=== PATIENT | male | born 1980 | race African-American/Black ===

== ENCOUNTER 2018-07-29 11:45 | Emergency (ER) | payer BC ==
[~2018-07-29] VITALS: Ht 165.1 cm; Wt 86.2 kg
[2018-07-29 12:06] VITALS: BP 140/90
--- NOTE | 2018-07-29 12:22 | PHYS DOC ---
Past Medical History Past Medical History: No Pertinent History Past Surgical History: No Surgical History Alcohol Use: None Drug Use: None Adult General Chief Complaint Chief Complaint: TOE PROBLEM HPI HPI Patient is a 38 year old male who presents with right great toe injury. Patient was wearing flip-flops when he was walking through a store parking lot. He suffered a double type injury to the right toe. He complains of right toe pain and some distraction of the right rate toenail. He did not sustain additional injury. He is uncertain when his last tetanus shot was. Review of Systems Review of Systems Constitutional: Denies fever HENT: Denies nasal congestion Respiratory: Denies cough or shortness of breath Cardiovascular: No additional information not addressed in HPI GI: Denies abdominal pain Musculoskeletal: Denies back pain Integument: Denies rash Neurologic: Denies headache All other systems were reviewed and found to be within normal limits, except as documented in this note. Current Medications Current Medications Current Medications Medications (Trade) Dose Ordered Sig/Ami Start Time Stop Time Status Last Admin Dose Admin Diphtheria/ Tetanus/Acell Pertussis (Boostrix) 0.5 ml ONCE ONCE 07/29/18 12:30 07/29/18 12:31 DC 07/29/18 12:38 0.5 ML Ibuprofen (Motrin) 800 mg 1X ONCE 07/29/18 12:30 07/29/18 12:31 DC 07/29/18 12:18 800 MG Allergies Allergies Allergies Coded Allergies Type Severity Reaction Last Updated Verified No Known Drug Allergies 07/29/18 No Physical Exam Physical Exam Constitutional: Well developed, well nourished, no acute distress HENT: Normocephalic, atraumatic, bilateral external ears normal Eyes: PERRLA, EOMI Neck: Normal range of motion Skin: Warm, dry, no erythema, no rash Extremities: minor abrasion to the right great toe and very small portion of the toenail is torn, capillary refill is < 2 seconds Neurologic: Alert and oriented X 3 Psychologic: Affect normal Current Patient Data Vital Signs Vital Signs Date Time Temp Pulse Resp B/P (MAP) Pulse Ox O2 Delivery O2 Flow Rate FiO2 07/29/18 12:06 97.7 70 18 140/90 (107) 97 Room Air 97.7 EKG EKG [] Radiology/Procedures Radiology/Procedures XR right great toe: negative for acute bony abnormality Course & Med Decision Making Course & Med Decision Making Pertinent Labs and Imaging studies reviewed. (See chart for details) Patient was evaluated in the emergency department for a toe injury. No acute findings were present on x-ray. He was discharged home with ibuprofen as needed for pain. Follow-up with primary care doctor or come back to the ER as needed. He was offered a postop shoe for comfort but declined prior to discharge. Dragon Disclaimer Dragon Disclaimer This electronic medical record was generated, in whole or in part, using a voice recognition dictation system. Departure Departure Disposition: 01 HOME, SELF-CARE Condition: GOOD Scripts Ibuprofen (IBUPROFEN) 800 Mg Tablet 800 MG PO PRN TID PRN for PAIN, #20 TAB take with food or milk to avoid upsetting stomach Prov: SKY HILLMAN DO 07/29/18 SKY HILLMAN DO Jul 29, 2018 12:21
[2018-07-29] MEDS ORDERED: DIPHTH,PERTUSS(ACELL),TET TOX 0.5 ML DISP.SYRIN. VAX IM ONE (12:30)
[2018-07-29] MEDS ORDERED: IBUPROFEN 400 MG TABLET. PO ONE (12:30)
--- NOTE | 2018-07-29 12:36 | RAD ---
Right great toe, 3 views, 07/29/2018: HISTORY: Injury No fracture or dislocation is identified. IMPRESSION: No significant bony abnormality is detected. Electronically signed by: Toribio Shankar MD (07/29/2018 12:31 PM) [facility]
[2018-07-29] MEDS ORDERED: IBUP-1060 PO (12:37)
== END 2018-07-29 12:41 | disposition home or self-care (01) ==
LOC: ER 11:45
DX: S90.411A Abrasion, right great toe, initial encounter (principal); X58.XXXA Exposure to other specified factors, initial encounter; Y93.01 Activity, walking, marching and hiking; Y92.481 Parking lot as the place of occurrence of the external cause; Y99.8 Other external cause status
CPT/HCPCS: 73660; 90471; 90715; 99283

== ENCOUNTER 2018-09-02 01:44 | Emergency (ER) | payer BC ==
[~2018-09-02] VITALS: Ht 165.1 cm; Wt 84.8 kg
[~2018-09-02 01:44] MED LIST: IBUP-1060 PO
[2018-09-02 02:00] VITALS: BP 152/93
[2018-09-02] MEDS ORDERED: DEXAMETHASONE 4 MG TABLET PO ONE (02:30)
[2018-09-02] MEDS ORDERED: PRED20TA PO (02:48)
[2018-09-02] MEDS ORDERED: ALBU2.5V8 INH (02:48)
--- NOTE | 2018-09-02 02:48 | PHYS DOC ---
Past Medical History Past Medical History: No Pertinent History Past Surgical History: No Surgical History Alcohol Use: Occasionally Drug Use: None Adult General Chief Complaint Chief Complaint: FLU SYMPTOM HPI HPI Patient is a 38 year old [f__sex] who presents with [] Review of Systems Review of Systems Constitutional: Denies fever or chills [] Eyes: Denies change in visual acuity, redness, or eye pain [] HENT: Denies nasal congestion or sore throat [] Respiratory: Denies cough or shortness of breath [] Cardiovascular: No additional information not addressed in HPI [] GI: Denies abdominal pain, nausea, vomiting, bloody stools or diarrhea [] : Denies dysuria or hematuria [] Musculoskeletal: Denies back pain or joint pain [] Integument: Denies rash or skin lesions [] Neurologic: Denies headache, focal weakness or sensory changes [] Endocrine: Denies polyuria or polydipsia [] All other systems were reviewed and found to be within normal limits, except as documented in this note. Current Medications Current Medications Current Medications Medications (Trade) Dose Ordered Sig/Ami Start Time Stop Time Status Last Admin Dose Admin Dexamethasone (Decadron) 10 mg 1X ONCE 09/02/18 02:30 09/02/18 02:31 DC 09/02/18 02:25 10 MG Allergies Allergies Allergies Coded Allergies Type Severity Reaction Last Updated Verified No Known Drug Allergies 07/29/18 No Physical Exam Physical Exam Constitutional: Well developed, well nourished, no acute distress, non-toxic appearance. [] HENT: Normocephalic, atraumatic, bilateral external ears normal, oropharynx moist, no oral exudates, nose normal. [] Eyes: PERRLA, EOMI, conjunctiva normal, no discharge. [] Neck: Normal range of motion, no tenderness, supple, no stridor. [] Cardiovascular:Heart rate regular rhythm, no murmur [] Lungs & Thorax: Bilateral breath sounds clear to auscultation [] Abdomen: Bowel sounds normal, soft, no tenderness, no masses, no pulsatile masses. [] Skin: Warm, dry, no erythema, no rash. [] Back: No tenderness, no CVA tenderness. [] Extremities: No tenderness, no cyanosis, no clubbing, ROM intact, no edema. [] Neurologic: Alert and oriented X 3, normal motor function, normal sensory function, no focal deficits noted. [] Psychologic: Affect normal, judgement normal, mood normal. [] Current Patient Data Vital Signs Vital Signs Date Time Temp Pulse Resp B/P (MAP) Pulse Ox O2 Delivery O2 Flow Rate FiO2 09/02/18 02:00 98.5 90 16 152/93 (112) 96 Room Air 98.5 EKG EKG [] Radiology/Procedures Radiology/Procedures [] Course & Med Decision Making Course & Med Decision Making Pertinent Labs and Imaging studies reviewed. (See chart for details) [] Dragon Disclaimer Dragon Disclaimer This electronic medical record was generated, in whole or in part, using a voice recognition dictation system. Departure Departure Impression: Primary Impression: Flu-like symptoms Disposition: HOME, SELF-CARE Condition: STABLE Referrals: NO PCP (PCP) Patient Instructions: Upper Respiratory Infection, Adult, [id number], Viral Syndrome Scripts Guaifenesin/Codeine Phosphate (Coditussin AC Liquid) 473 Ml Liquid 10 ML PO TID PRN PRN for COUGH, #100 LIQUID Prov: YOON MONTENEGRO DO 09/02/18 Prednisone (PREDNISONE) 20 Mg Tablet 2 TAB PO DAILY, #8 TAB Start tomorrow Saturday09/03/18 Prov: YOON MONTENEGRO DO 09/02/18 Albuterol Sulfate (PROAIR HFA INHALER) 8.5 Gm Hfa.aer.ad 1 PUFF INH PRN Q6HRS PRN for SHORTNESS OF BREATH, #1 INHALER 0 Refills Prov: YOON MONTENEGRO DO 09/02/18 YOON MONTENEGRO DO Sep 02, 2018 02:48
[2018-09-02] MEDS ORDERED: GUAI473L75 PO (03:00)
--- NOTE | 2018-09-02 08:04 | RAD ---
Examination: CHEST PA LATERAL History: cough Comparison/Correlation: None Findings: PA and lateral views of chest were obtained. Heart size and pulmonary vasculature are normal. No infiltrate or pneumothorax. Bony structures are intact. No pleural effusion. Impression: No active disease. Electronically signed by: Pradip Rodriguez MD (09/02/2018 7:59 AM) [facility]
== END 2018-09-02 03:07 | disposition home or self-care (01) ==
LOC: ER 01:44
DX: R05 Cough (principal); R09.81 Nasal congestion; M79.18 Myalgia, other site
CPT/HCPCS: 71046; 99283; J8540

== ENCOUNTER 2018-09-21 05:55 | Emergency (ER) | payer BC ==
[~2018-09-21] VITALS: Ht 167.6 cm; Wt 86.2 kg
[~2018-09-21 05:55] MED LIST changes: +ALBU2.5V8 INH; +GUAI473L75 PO; +PRED20TA PO
--- NOTE | 2018-09-21 06:13 | PHYS DOC ---
Past Medical History Past Medical History: No Pertinent History Past Surgical History: No Surgical History Alcohol Use: None Drug Use: None Adult General Chief Complaint Chief Complaint: FLANK PAIN HPI HPI Patient is a 38 year old male presented to ER today for evaluation of right- sided abdominal pain started last night. Patient said the pain continued throughout the night, woke him up from sleep. Patient said the pain radiated to his right groin area, into his low back. Patient denies any fever. He denies any previous kidney stone history, no frequent urination, no blood in his urine. Patient still has an appendix. He denies anything that makes the pain worse or better. Patient denies any fever. Review of Systems Review of Systems Constitutional: Denies fever or chills [] Eyes: Denies change in visual acuity, redness, or eye pain [] HENT: Denies nasal congestion or sore throat [] Respiratory: Denies cough or shortness of breath [] Cardiovascular: No additional information not addressed in HPI [] GI: Positive abdominal pain, NO nausea, vomiting, bloody stools or diarrhea [] : Denies dysuria or hematuria [] Musculoskeletal: Denies back pain or joint pain [] Integument: Denies rash or skin lesions [] Neurologic: Denies headache, focal weakness or sensory changes [] Endocrine: Denies polyuria or polydipsia [] All other systems were reviewed and found to be within normal limits, except as documented in this note. Current Medications Current Medications Current Medications Medications (Trade) Dose Ordered Sig/Ami Start Time Stop Time Status Last Admin Dose Admin Ketorolac Tromethamine (Toradol 30mg Vial) 30 mg 1X ONCE 09/21/18 06:15 09/21/18 06:16 DC 09/21/18 06:20 30 MG Morphine Sulfate (Morphine Sulfate) 4 mg 1X ONCE 09/21/18 08:15 09/21/18 08:16 DC 09/21/18 08:20 4 MG Ondansetron HCl (Zofran) 4 mg 1X ONCE 09/21/18 06:15 09/21/18 06:16 DC 09/21/18 06:20 4 MG Sodium Chloride 1,000 ml @ 1,000 mls/hr Q1H 09/21/18 06:15 09/21/18 07:14 DC 09/21/18 06:19 1,000 MLS/HR Allergies Allergies Allergies Coded Allergies Type Severity Reaction Last Updated Verified No Known Drug Allergies 09/21/18 No Physical Exam Physical Exam Constitutional: Well developed, well nourished, no acute distress, non-toxic appearance. [] HENT: Normocephalic, atraumatic, bilateral external ears normal, oropharynx moist, no oral exudates, nose normal. [] Eyes: PERRLA, EOMI, conjunctiva normal, no discharge. [] Neck: Normal range of motion, no tenderness, supple, no stridor. [] Cardiovascular:Heart rate regular rhythm, no murmur [] Lungs & Thorax: Bilateral breath sounds clear to auscultation [] Abdomen: Bowel sounds normal, soft, RLQ tenderness TO PALPATION, no masses, no pulsatile masses. [] Skin: Warm, dry, no erythema, no rash. [] Back: No tenderness, no CVA tenderness. [] Extremities: No tenderness, no cyanosis, no clubbing, ROM intact, no edema. [] Neurologic: Alert and oriented X 3, normal motor function, normal sensory function, no focal deficits noted. [] Psychologic: Affect normal, judgement normal, mood normal. [] Current Patient Data Vital Signs Vital Signs Date Time Temp Pulse Resp B/P (MAP) Pulse Ox O2 Delivery O2 Flow Rate FiO2 09/21/18 09:37 72 15 119/73 (88) 98 Room Air 09/21/18 06:01 97.9 97.9 Lab Values Laboratory Tests Test 09/21/18 06:09 09/21/18 06:25 09/21/18 07:10 White Blood Count 7.4 x10^3/uL (4.0-11.0) Red Blood Count 5.13 x10^6/uL (4.30-5.70) Hemoglobin 13.8 g/dL (13.0-17.5) Hematocrit 41.9 % (39.0-53.0) Mean Corpuscular Volume 82 fL (79-100) Mean Corpuscular Hemoglobin 27 pg (25-35) Mean Corpuscular Hemoglobin Concent 33 g/dL (31-37) Red Cell Distribution Width 15.3 % (11.5-14.5) H Platelet Count 254 x10^3/uL (140-400) Neutrophils (%) (Auto) 50 % (31-73) Lymphocytes (%) (Auto) 32 % (24-48) Monocytes (%) (Auto) 15 % (0-9) H Eosinophils (%) (Auto) 3 % (0-3) Basophils (%) (Auto) 1 % (0-3) Neutrophils # (Auto) 3.7 x10^3uL (1.8-7.7) Lymphocytes # (Auto) 2.4 x10^3/uL (1.0-4.8) Monocytes # (Auto) 1.1 x10^3/uL (0.0-1.1) Eosinophils # (Auto) 0.2 x10^3/uL (0.0-0.7) Basophils # (Auto) 0.1 x10^3/uL (0.0-0.2) Sodium Level 141 mmol/L (136-145) Potassium Level 3.5 mmol/L (3.5-5.1) Chloride Level 104 mmol/L (98-107) Carbon Dioxide Level 27 mmol/L (21-32) Anion Gap 10 (6-14) Blood Urea Nitrogen 19 mg/dL (8-26) Creatinine 1.1 mg/dL (0.7-1.3) Estimated GFR (Cockcroft-Gault) 91.1 BUN/Creatinine Ratio 17 (6-20) Glucose Level 107 mg/dL (70-99) H Calcium Level 8.3 mg/dL (8.5-10.1) L Total Bilirubin 0.3 mg/dL (0.2-1.0) Aspartate Amino Transferase (AST) 23 U/L (15-37) Alanine Aminotransferase (ALT) 41 U/L (16-63) Alkaline Phosphatase 77 U/L (46-116) Total Protein 7.2 g/dL (6.4-8.2) Albumin 3.5 g/dL (3.4-5.0) Albumin/Globulin Ratio 0.9 (1.0-1.7) L Lipase 293 U/L (73-393) Urine Collection Type Unknown Urine Color Yellow Urine Clarity Clear Urine pH 6.0 Urine Specific [place] 1.015 Urine Protein Negative mg/dL (NEG-TRACE) Urine Glucose (UA) Negative mg/dL (NEG) Urine Ketones (Stick) Negative mg/dL (NEG) Urine Blood Negative (NEG) Urine Nitrite Negative (NEG) Urine Bilirubin Negative (NEG) Urine Urobilinogen Dipstick 0.2 mg/dL (0.2 mg/dL) Urine Leukocyte Esterase Negative (NEG) Urine RBC 0 /HPF (0-2) Urine WBC 0 /HPF (0-4) Urine Squamous Epithelial Cells Occ /LPF Urine Bacteria 0 /HPF (0-FEW) Laboratory Tests 09/21/18 06:09 Laboratory Tests 09/21/18 06:25 EKG EKG [] Radiology/Procedures Radiology/Procedures [][facility] [address] [place] [address] IMAGING REPORT Signed PATIENT: EZEQUIEL SANCHEZ ACCOUNT: [id number] : 1980 LOCATION: ER AGE: 38 SEX: M EXAM STATUS: REG ER ORD. PHYSICIAN: AMAN ANDERSON DO REASON: right side abdominal pain PROCEDURE: CT ABDOMEN PELVIS WO CONTRAST Exam performed: CT scan of the abdomen and pelvis without contrast. Clinical Indication: Right flank pain. Date of Service: 09/21/2018 . Comparison: None available Technique: Contiguous helical acquisitions are obtained through the abdomen and pelvis without oral or IV contrast. Sagittal and coronal reformatted images are obtained and reviewed. CT abdomen findings: The lung bases are essentially clear. The visualized heart is normal. Lack of IV contrast limits evaluation of abdominal viscera, however the liver, spleen, pancreas and gallbladder appear normal. Both adrenal glands and bilateral kidneys are normal in size. There is no nephrolithiasis. Mild fullness of the right collecting system and prominence of right upper and mid ureter is seen without an obstructing calculus. No gross Hydronephrosis or perinephric stranding is seen. Aorta is normal in caliber. No retroperitoneal or mesenteric lymphadenopathy.Small and large bowel loops are nondilated and unremarkable. Visualized appendix is normal. CT pelvis findings: The pelvic bowel loops are nondilated and unremarkable. The urinary bladder is normal, no calculi or masses seen. The prostate gland is normal. Seminal vesicles and rectum appear unremarkable. No fluid collections or pelvic lymphadenopathy. Bones are unremarkable. Impression: Mild fullness of the right collecting system and right upper ureter without definite visualization of a calculus. Findings may be related to recently passed calculus. Correlate clinically and with UA findings. Not mentioned above, a small 10.9 mm low attenuating nodule in the inferior right hepatic lobe is noted. This could possibly represent a cyst or hemangioma. Evaluation with ultrasound or contrast-enhanced CT may be obtained for further characterization. Appendix is normal RS Compliance Statement: One or more of the following individualized dose reduction techniques were utilized for this examination: 1. Automated exposure control 2. Adjustment of the mA and/or kV according to patient size 3. Use of iterative reconstruction technique Electronically signed by: Abena Fan MD (09/21/2018 7:35 AM) [facility] DICTATED and SIGNED BY: ABENA FAN MD DATE: 09/21/18 0721 [facility] [address] [place] [address] IMAGING REPORT Signed PATIENT: EZEQUIEL SANCHEZ ACCOUNT: [id number] : 1980 LOCATION: ER AGE: 38 SEX: M EXAM STATUS: REG ER ORD. PHYSICIAN: AMAN ANDERSON DO REASON: right side abdominal pain. PROCEDURE: ABDOMEN LTD Limited abdominal ultrasound History: RUQ PAIN, LIVER CYST ON CT Findings: Pancreas unremarkable. Gallbladder demonstrates no calcified stone or wall thickening. Inferior vena cava is visualized. 9 mm lesion in the right anterior liver, compatible with a cyst. This may represent the lesion which was also seen on CT scan. Right kidney measures 11.7 cm longitudinal without hydronephrosis. IMPRESSION: 1. Small 9 mm lesion at the anterior right lobe of liver compatible with a cyst. 2. No other significant sonographic abnormalities. Electronically signed by: Manny Chery MD (09/21/2018 10:27 AM) [facility] DICTATED and SIGNED BY: MANNY CHERY MD DATE: 09/21/18 1023 Course & Med Decision Making Course & Med Decision Making Pertinent Labs and Imaging studies reviewed. (See chart for details) [] Dragon Disclaimer Dragon Disclaimer This electronic medical record was generated, in whole or in part, using a voice recognition dictation system. Departure Departure Impression: Primary Impression: Flank pain Disposition: 01 HOME, SELF-CARE Condition: STABLE Referrals: NO PCP (PCP) Patient Instructions: Flank Pain, [id number] AMAN ANDERSON DO Sep 21, 2018 06:13
[2018-09-21] MEDS ORDERED: KETOROLAC 30 MG/ML VIAL. IV ONE (06:15)
[2018-09-21] MEDS ORDERED: IV NORMAL SALINE 1000ML BAG 1,000 ML IV SCH (06:15)
[2018-09-21] MEDS ORDERED: ONDANSETRON PF 4 MG/2 ML VIAL. IV ONE (06:15)
[2018-09-21 06:22] LABS: BASO # 0.1 x10^3/uL (0.0-0.2); BASO % 1 % (0-3); EOS # 0.2 x10^3/uL (0.0-0.7); EOS % 3 % (0-3); HEMATOCRIT 41.9 % (39.0-53.0); HEMOGLOBIN 13.8 g/dL (13.0-17.5); LYMPH # 2.4 x10^3/uL (1.0-4.8); LYMPH % 32 % (24-48); MEAN CORPUSCULAR HEMOGLOBIN 27 pg (25-35); MEAN CORPUSCULAR HGB CONC 33 g/dL (31-37); MEAN CORPUSCULAR VOLUME 82 fL (79-100); MONO # 1.1 x10^3/uL (0.0-1.1); MONO % 15 % (0-9); NEUT # 3.7 x10^3uL (1.8-7.7); NEUT % 50 % (31-73); PLATELET COUNT 254 x10^3/uL (140-400); RED BLOOD COUNT 5.13 x10^6/uL (4.30-5.70); RED CELL DISTRIBUTION WIDTH 15.3 % (11.5-14.5); WHITE BLOOD COUNT 7.4 x10^3/uL (4.0-11.0)
[2018-09-21 06:45] LABS: CALCIUM 8.3 mg/dL (8.5-10.1); CREATININE 1.1 mg/dL (0.7-1.3); GFR 91.1; POTASSIUM 3.5 mmol/L (3.5-5.1)
[2018-09-21 06:48] LABS: ALBUMIN 3.5 g/dL (3.4-5.0); ALBUMIN/GLOBULIN RATIO 0.9 (1.0-1.7); TOTAL BILIRUBIN 0.3 mg/dL (0.2-1.0); TOTAL PROTEIN 7.2 g/dL (6.4-8.2)
[2018-09-21 07:33] LABS: BILIRUBIN,URINE NEGATIVE (NEG); CLARITY,URINE CLEAR; COLOR,URINE YELLOW; NITRITE,URINE NEGATIVE (NEG); PROTEIN,URINE NEGATIVE (NEG-TRACE); UROBILINOGEN,URINE 0.2 mg/dL (0.2 mg/dL)
--- NOTE | 2018-09-21 07:38 | RAD ---
Exam performed: CT scan of the abdomen and pelvis without contrast. Clinical Indication: Right flank pain. Date of Service: 09/21/2018 . Comparison: None available Technique: Contiguous helical acquisitions are obtained through the abdomen and pelvis without oral or IV contrast. Sagittal and coronal reformatted images are obtained and reviewed. CT abdomen findings: The lung bases are essentially clear. The visualized heart is normal. Lack of IV contrast limits evaluation of abdominal viscera, however the liver, spleen, pancreas and gallbladder appear normal. Both adrenal glands and bilateral kidneys are normal in size. There is no nephrolithiasis. Mild fullness of the right collecting system and prominence of right upper and mid ureter is seen without an obstructing calculus. No gross Hydronephrosis or perinephric stranding is seen. Aorta is normal in caliber. No retroperitoneal or mesenteric lymphadenopathy.Small and large bowel loops are nondilated and unremarkable. Visualized appendix is normal. CT pelvis findings: The pelvic bowel loops are nondilated and unremarkable. The urinary bladder is normal, no calculi or masses seen. The prostate gland is normal. Seminal vesicles and rectum appear unremarkable. No fluid collections or pelvic lymphadenopathy. Bones are unremarkable. Impression: Mild fullness of the right collecting system and right upper ureter without definite visualization of a calculus. Findings may be related to recently passed calculus. Correlate clinically and with UA findings. Not mentioned above, a small 10.9 mm low attenuating nodule in the inferior right hepatic lobe is noted. This could possibly represent a cyst or hemangioma. Evaluation with ultrasound or contrast-enhanced CT may be obtained for further characterization. Appendix is normal PQRS Compliance Statement: One or more of the following individualized dose reduction techniques were utilized for this examination: 1. Automated exposure control 2. Adjustment of the mA and/or kV according to patient size 3. Use of iterative reconstruction technique Electronically signed by: Abena Fan MD (09/21/2018 7:35 AM) [id number]
[2018-09-21 07:53] LABS: BACTERIA,URINE 0 /HPF (0-FEW); RBC,URINE 0 /HPF (0-2); SQUAMOUS EPITHELIAL CELL,UR OCC /LPF; WBC,URINE 0 /HPF (0-4)
[2018-09-21] MEDS ORDERED: MORPHINE SULFATE 4 MG/ML VIAL. IV ONE (08:15)
--- NOTE | 2018-09-21 10:30 | RAD ---
Limited abdominal ultrasound History: RUQ PAIN, LIVER CYST ON CT Findings: Pancreas unremarkable. Gallbladder demonstrates no calcified stone or wall thickening. Inferior vena cava is visualized. 9 mm lesion in the right anterior liver, compatible with a cyst. This may represent the lesion which was also seen on CT scan. Right kidney measures 11.7 cm longitudinal without hydronephrosis. IMPRESSION: 1. Small 9 mm lesion at the anterior right lobe of liver compatible with a cyst. 2. No other significant sonographic abnormalities. Electronically signed by: Manny Chery MD (09/21/2018 10:27 AM) [facility]
[2018-09-21 11:37] VITALS: BP 117/60
== END 2018-09-21 08:02 | disposition home or self-care (01) ==
LOC: ER 05:55
DX: R10.11 Right upper quadrant pain (principal)
CPT/HCPCS: 36415; 74176; 76705; 80053; 81001; 83690; 85025; 96374; 96375; 99284; J1885; J2270; J2405; J7030